=== PATIENT | female | born 1985 | race Caucasian/White ===

== ENCOUNTER 2021-02-12 14:57 | Emergency (ER) | payer BC, SELFPAY ==
--- NOTE | 2021-02-12 15:26 | PC.NURSE ---
Pt called to triage with no answer
--- NOTE | 2021-02-12 15:35 | PC.NURSE ---
CALLED FOR TRIAGE X2 NO ANSWER.
== END 2021-02-12 15:35 | disposition left against medical advice (07) ==
LOC: ANHED 15:41
DX: Z53.21 Procedure and treatment not carried out due to patient leaving prior to being seen by health care provider (principal)
CPT/HCPCS: 99199

== ENCOUNTER 2021-02-12 15:21 | Emergency (ER) | payer BC, SELFPAY ==
--- NOTE | ~2021-02-12 | XR_ITS ---
XR abdomen/kub 1V 02/12/2021 16:20 INDICATION: Right-sided abdominal pain. Diarrhea. TECHNIQUE: KUB COMPARISON: None FINDINGS: Bowel gas pattern is normal. There is a small bone island in the left pelvis. There is no e vidence of free air, mass, organomegaly, ascites or obstruction. No abnormal calculi are seen. The bones appear intact. IMPRESSION: 1: No acute abdominal abnormality identified. Reviewed, dictated and finalized at location A.
[2021-02-12 15:33] VITALS: BP 125/75; PULSE 106; RESP 16; TEMP 38.8; O2SAT 99
--- NOTE | 2021-02-12 15:49 | ED.GENADULT ---
HPI - General Adult General Chief complaint: Abdominal Pain Stated complaint: abd pain Time Seen by Provider: 02/12/21 15:50 Source: patient and RN notes reviewed Mode of arrival: ambulatory Limitations: no limitations History of Present Illness HPI narrative: 35-year-old female presents with complaints of right abdomen pain, fever, chills, nausea, and vomiting for the past 3 days. Natividad reports increasing symptoms over the past 24 hours with body aches and abdominal pain. ?Ibuprofen last today at 07:00 and Promethazine last on Wednesday02/10/2021 without relief. ?No significant pelvic pain. ?No vaginal discharge. ?No concerns for STDs. ?Fever (unknown at home, no thermometer) with chills. Nausea, vomiting, and diarrhea. ?Last episode on 02/11/2021 X2 in am and on 02/10/2021 had 3-4 episodes. ?No flank pain. Exacerbating factors consist of palpation. ?Denies dysuria, hematuria, and vaginal bleeding. ?No blood in stool or constipation. Last BM today, this morning was watery without blood. No cough or dyspnea. ?Denies chest pain, back pain, headache, and dizziness. ?Urine output within normal limits. ?Remains active. ?The patient reports she has not been diagnosed with COVID-19. ?The patient reports she is not waiting for the results of a COVID-19 lab test. ?Denies chest pain. ?The patient reports she does not have any rhinorrhea, congestion, sore throat, loss of taste or smell. ?Denies recent traveling. Denies concerns for COVID-19 or exposures. ?At this time, the patient is not suspected of having COVID-19. Some parts of this dictation were generated by voice recognition software and may contain typographical and/or grammatical inaccuracies. Related Data Home Medications Medication Instructions Recorded Confirmed Adult One Daily Multivitamin 1 tablet PO DAILY 02/12/21 02/12/21 Allergies Allergy/AdvReac Type Severity Reaction Status Date / Time latex Allergy Rash Verified 02/12/21 15:44 peanut Allergy Swelling Verified 02/12/21 15:44 tramadol Allergy Difficulty Verified 02/12/21 15:44 Breathing Review of Systems Review of Systems: Narrative: CONSTITUTIONAL: Complains of fever, chills, fatigue, body aches. Denies sweats. EYES: Denies visual changes, redness, discharge. ENT: Denies rhinorrhea, congestion, sore throat, otalgia. CARDIOVASCULAR: Denies chest pain, palpitations, edema. RESPIRATORY: Denies dyspnea, wheezing, cough. GASTROINTESTINAL: Complaints of diarrhea, abdominal pain, vomiting, nausea, and decreased appetite. GENITOURINARY: Denies dysuria, hematuria, abnormal discharge. SKIN: Denies rash or itching. MUSCULOSKELETAL: Denies acute back pain, joint pain, or myalgia. NEUROLOGIC: Denies numbness or focal weakness. PSYCHIATRIC: Denies anxiety or depression. All systems reviewed & are unremarkable except as noted in HPI and below. [facility] Past Medical History Medical History Anxiety Asthma Depression External hemorrhoid Paranoid schizophrenia Tobacco abuse Surgical History Surgical History History of tubal ligation Family History Family History Father , [place] at age 51 Acute myocardial infarction Diabetes mellitus Mother Drug overdose Sibling Asthma Social History Social History Social History: She lives with a friend in [place]. She has 3 children (ages 19,15 and 13) but they live with their father. She works at [employer]. She has smoked 1 pack of cigarettes per day for 18 years. She drinks alcohol on occasion but reports moderation. She frequently smokes marijuana. Smoking packs per day: 1 Smoking cigarettes per day: 20.0 Years smoked: 18 Smoking pack-years: 18.00 Smoking status: Current every day smoker Tobacco type: c
[2021-02-12 16:07] VITALS: TEMP 38.8
[2021-02-12] MEDS: ONDANSETRON HCL ODT 4 MG TABLET PO (16:07)
[2021-02-12] MEDS: ACETAMINOPHEN 500 MG TABLET 1000 MG PO (16:07)
[2021-02-12] MEDS: KETOROLAC (*BKC) 60 MG/2 ML VIAL IM (16:08)
[2021-02-12 16:39] VITALS: TEMP 38.6
--- NOTE | 2021-02-12 16:41 | PC.NURSE ---
1639- Pt called from room still not feeling well dry heaving, [employer] notified.
[2021-02-12 16:53] VITALS: BP 110/59; PULSE 96; RESP 18; TEMP 37.9; O2SAT 100
== END 2021-02-12 16:56 | disposition short-term general hospital (02) ==
PROVIDERS: Emergency Provider Nurse Practitioner Family
DX: R10.9 Unspecified abdominal pain (principal); F17.210 Nicotine dependence, cigarettes, uncomplicated; J45.909 Unspecified asthma, uncomplicated
CPT/HCPCS: 74018; 81003; 96372; 99203; A9270; G0463; J1885

== ENCOUNTER 2021-02-12 17:32 | Inpatient (IN) | payer BC, SELFPAY ==
--- NOTE | ~2021-02-12 | CT_ITS ---
EXAMINATION: CT abdomen pelvis w con DATE: 02/12/2021 19:01 INDICATION: Right lower quadrant pain. TECHNIQUE: Computed tomography (CT) of the abdomen and pelvis was performed with 100 cc Omnipaque 350 intravenous contrast. The dose-length product was 581.83 mGy-cm. Automated exposure control and iter ative reconstruction technique were employed. COMPARISON: None. FINDINGS: Lung bases are unremarkable. Heart size normal. No significant pleural or pericardial effus ion. There is heterogeneous enhancement of the right kidney with small amount of perinephric fluid. T he liver, spleen, pancreas, adrenal glands and left kidney are unremarkable. Nonobstructive bowel gas pattern. Normal appendix. No significant vascular abnormality. No lymphadenopathy. No free air or fr ee fluid. There is grade 2 spondylolisthesis at L5-S1 secondary to spondylolysis. There is severe deg enerative disc disease at this level. IMPRESSION: 1. Heterogeneous enhancement of the right kidney with perinephric fluid/stranding, suspicious for milton lonephritis. Clinically correlate. Reviewed, dictated and finalized at location A. IMPRESSION: 1. Heterogeneous enhancement of the right kidney with perinephric fluid/strandi ng, suspicious for pyelonephritis. Clinically correlate.
[2021-02-12 17:42] VITALS: BP 120/70; PULSE 113; RESP 17; TEMP 36.7; O2SAT 100
[2021-02-12 18:02] LABS: Basophils Absolute Auto 0.1 K/mm3 (0.0-0.1); Basophils Percent Auto 0.3 % (0.2-1.2); Eosinophils Absolute Auto 0.4 K/mm3 (0-0.3); Eosinophils Percent Auto 1.4 % (0-4.4); Hematocrit 37.8 % (37.0-47.0); Hemoglobin 12.7 g/dL (12.0-15.0); Immature Granulocyte Absolute 0.16 K/mm3 (0.00-0.031); Immature Granulocyte Percent A 0.6 % (0-0.5); Lymphocytes Absolute Auto 2.72 K/mm3 (0.9-3.2); Lymphocytes Percent Auto 10.6 % (18.3-44.2); Mean Corpuscular HGB Conc 33.6 g/dl (32-36); Mean Corpuscular Hemoglobin 29.5 pg (26-34); Mean Corpuscular Volume 87.9 fl (80-100); Mean Platelet Volume 9.3 fl (7.4-10.4); Monocytes Absolute Auto 2.1 K/mm3 (0.1-0.6); Neutrophils Absolute Auto 20.4 K/mm3 (1.3-6.7); Neutrophils Percent Auto 79.1 % (45.5-73.1); Platelet Count Result 355 k/mm3 (150-375); Red Cell Distribution Width 13.2 % (11.5-14.5); White Blood Count 25.7 K/mm3 (4.5-10.0)
[2021-02-12 18:18] LABS: Alanine Aminotransferase 30 U/L (4-35); Albumin Level 3.9 g/dL (3.5-5.1); Alkaline Phosphatase 71 U/L (38-126); Anion Gap 7 mmol/L (8-16); Aspartate Amino Transferase 40 U/L (14-36); Bilirubin,Total 0.4 mg/dL (0.2-1.3); Blood Urea Nitrogen 9 mg/dL (7-17); Calcium 8.3 mg/dL (8.4-10.2); Carbon Dioxide 25 mmol/L (22-30); Chloride 105 mmol/L (98-107); Estimated CRCL calculation 114 ml/min; Estimated Glomerular Filt Rate > 60; Glucose 108 mg/dL (65-105); Lipase 21 U/L (23-300); Potassium 3.7 mmol/L (3.4-5.0); Sodium 137 mmol/L (137-145)
[2021-02-12 19:18] VITALS: BP 117/83; PULSE 79; RESP 16; O2SAT 100
[2021-02-12 19:21] LABS: Add Urine Microscopic? YES; Appearance Urine Cloudy (Clear); Bacteria Urine Trace /hpf; Bilirubin Urine Negative (Negative); Blood Urine 2+ (Negative); Color Urine Amber (Yellow); Glucose Urine UA Negative (Negative); Ketones Urine Negative (Negative); Leukocyte Esterase Ur 2+ LEU/UL (Negative); Mucus Urine Heavy /lpf; Nitrate Urine Negative (Negative); Protein Urine 2+ mg/dL (Negative); Squamous Epithelial Cell Urine Many /hpf (Few); WBC Urine >75 /hpf
[2021-02-12 19:25] LABS: Specific Grav Ur 1.033 (1.001-1.035)
[2021-02-12] MEDS: KETOROLAC 15 MG/ML VIAL (*BKC) IV PUSH (19:35)
[2021-02-12] MEDS: ONDANSETRON INJ 4 MG/2 ML VIAL IV PUSH (19:35)
[2021-02-12] MEDS: SODIUM CHLORIDE 0.9% IV 1,000 ML 999 ML IV CONT (19:36)
[2021-02-12 19:59] LABS: Lactic Acid Reflex < 0.5 mmol/L (0.7-2.1)
--- NOTE | 2021-02-12 19:59 | ED.ABDPAIN ---
HPI - Abdominal Pain General Chief Complaint: Abdominal Pain Stated Complaint: RLQ pain Time Seen by Provider: 02/12/21 19:24 Source: patient and family Mode of arrival: ambulatory Limitations: no limitations History of Present Illness HPI narrative: Patient is a 35-year-old female with a history of anxiety, depression, schizophrenia, bipolar disorder who presents for evaluation of right-sided abdominal pain, right flank pain, fever, nausea and vomiting. Patient has been feeling unwell over the past several days. Initially she did have some hematuria and dysuria, states that has resolved. She reports urinary urgency. She reports dull, aching pain in the right abdomen and right flank. Patient has had a fever of 103 Fahrenheit and has had numerous episodes of nonbloody, nonbilious emesis. Patient presented from urgent care after she was referred to us where she was found to be febrile and tachycardic. Related Data Home Medications Medication Instructions Recorded Confirmed multivit with min-folic acid 1 tablet PO DAILY 02/12/21 02/12/21 [Adult One Daily Multivitamin] Allergies Allergy/AdvReac Type Severity Reaction Status Date / Time latex Allergy Rash Verified 02/12/21 15:44 peanut Allergy Swelling Verified 02/12/21 15:44 tramadol Allergy Difficulty Verified 02/12/21 15:44 Breathing Review of Systems Review of Systems: Narrative: CONSTITUTIONAL: Denies fever, chills, or sweats. EYES: Denies visual changes, redness, or discharge. ENT: Denies rhinorrhea, congestion, sore throat, or otalgia. CARDIOVASCULAR: Denies chest pain, palpitations, or edema. RESPIRATORY: Denies cough or dyspnea. GASTROINTESTINAL: Reports abdominal pain, nausea and vomiting GENITOURINARY: Denies dysuria, reports hematuria and frequency SKIN: Denies rash or itching. MUSCULOSKELETAL: Denies back pain, joint pain, or myalgia. NEUROLOGIC: Denies headache, numbness, or weakness. [facility] Past Medical History Medical History Anxiety Asthma Depression External hemorrhoid Paranoid schizophrenia Family History Family History Father , [place] at age 51 Acute myocardial infarction Mother , [place] No problems noted. Social History Social History Smoking packs per day: 1 Smoking cigarettes per day: 20.0 Years smoked: 10 Smoking pack-years: 10.00 Smoking status: Current every day smoker Tobacco type: cigarettes Second hand tobacco smoke exposure: Yes Alcohol intake: current Substance use: current Substance use type: marijuana Gender identity (if verbalized by the patient): Female Exam Narrative: Exam Narrative: GENERAL: Awake, alert, conversant HEAD: Normocephalic, atraumatic. EYES: PERRLA and EOMI. ENT: Nares clear, no rhinorrhea or epistaxis. Mucous membranes moist. NECK: Supple. CHEST: No respiratory distress, breathing even and non labored HEART: Tachycardic rate, sinus rhythm ABDOMEN:Non distended, mild right lower quadrant tenderness, mild right flank tenderness, no rebound, no guarding, nonrigid EXTREMITIES: Normal range of motion. No edema. SKIN: Warm, dry, no rash. NEURO:No focal deficits. Alert and oriented x3 Course Vital Signs Vital signs: Vital Signs Temperature 36.7 C 02/12/21 17:42 Pulse Rate 113 H 02/12/21 17:42 Respiratory Rate 17 02/12/21 17:42 Blood Pressure 120/70 02/12/21 17:42 Pulse Oximetry 100 02/12/21 17:42 Temperature 36.7 C 02/12/21 17:42 Pulse Rate 79 02/12/21 19:18 Respiratory Rate 16 02/12/21 19:18 Blood Pressure 117/83 02/12/21 19:18 Pulse Oximetry 100 02/12/21 19:18 MDM - Abdominal Pain MDM Narrative Medical decision making narrative: Patient is a 35-year-old who presented for evaluation of fever, abdominal pain, nausea and vomiting. At the time of as
[2021-02-12] MEDS: LORazepam INJ (*CRX) 2 MG/ML VIAL 0.5 MG IV PUSH (20:00)
[2021-02-12] MEDS: MORPHINE SULFATE (*CRX) 4 MG/ML INJ IV PUSH (21:09)
--- NOTE | 2021-02-12 21:56 | ADMGEN ---
This patient, Natividad Siddiqi, was admitted to 3 [facility] Surg Room 314-01. Patient/family oriented to hospital policies and general routines including ID bracelet, bed and alarms, visiting hours, pain management, procedures, bathroom and other care routines, personal items, smoking policy, room service/diet, and visiting hours. Information on how to activate the Rapid Response Team has been discussed. Patient/Family are encouraged to report perceived risks to care and to ask questions if they do not understand what they are told or what they should do.
[2021-02-12 22:00] VITALS: BP 107/54; PULSE 102; RESP 20; TEMP 37.1; O2SAT 100; BMI 29.5
[2021-02-12] MEDS: LACTATED RINGERS 1,000 ML 125 ML IV CONT (22:53)
[2021-02-12 23:48] VITALS: BP 107/51; PULSE 105; RESP 20; TEMP 36.7; O2SAT 99
--- NOTE | 2021-02-13 01:18 | PM.IMHP ---
H&P: HPI History of Present Illness Date/Time: 02/13/21 02:20 Chief Complaint: right lower abdominal pain Narrative: 35-year-old female past medical history of anxiety, depression, paranoid schizophrenia and bipolar disorder who presented to the ER from urgent care with right lower abdominal pain. patient reports that she has had about 3 days of abdominal pain. All pain was mostly in the right lower quadrant but would radiate down to the left adnexa. It also radiated to the right flank. It was accompanied by intermittent nausea and vomiting. She reported a fever as high as 103.4 at home. She reported increased urinary frequency. She denied any dysuria. In the ER she had reported some initial hematuria but at the time my evaluation denied ever having had any hematuria. She denies any foul-smelling urine or loss of bladder control. She reports that her abdominal pain is dull and aching. She reports that her abdominal pain is worse with palpation. Her fevers unrelieved despite NSAIDs . She initially reported numerous episodes of nausea vomiting with dry heaves. She has not had any further vomiting since admission to the hospital. She reports that she has had several months of intermittent loose stools up to 3-4 loose stools a day. Her stools are usually brown and watery. She denies any recent travel or antibiotic use. She works at a local fast food restaurant. She denies any known COVID exposures. She denies any cough or congestion. Patient sounds as if she has some nasal congestion and had quite loud snoring when I entered the room. The patient was sleeping soundly and was in no distress. Once the patient awoke she was rolling around in bed and moaning. She appears quite anxious. She had a CT of the abdomen pelvis in the ER which demonstrated right-sided pyelonephritis. She denies any prior history of frequent urinary tract infections or pyelonephritis.. Review of Systems Review of Systems: Narrative: 12 systems were reviewed with pertinent positives and negatives per HPI. Except as documented in the HPI, all other systems were reviewed and are negative. [facility] Past Medical History Medical History (Updated 02/13/21 @ 05:15 by Misty Patel DO) Anxiety Asthma Depression External hemorrhoid Paranoid schizophrenia Surgical History Surgical History (Updated 02/13/21 @ 05:08 by Misty Patel DO) History of tubal ligation Family History Family History (Updated 02/13/21 @ 05:08 by Misty Patel DO) Father , [place] at age 51 Acute myocardial infarction Diabetes mellitus Mother Drug overdose Sibling Asthma Social History Social History (Updated 02/13/21 @ 05:11 by Misty Patel DO) Social History: She lives with a friend in [place]. She has 3 children (ages 19,15 and 13) but they live with their father. She works at [employer]. She has smoked 1 pack of cigarettes per day for 18 years. She drinks alcohol on occasion but reports moderation. She frequently smokes marijuana. Smoking packs per day: 1 Smoking cigarettes per day: 20.0 Years smoked: 18 Smoking pack-years: 18.00 Smoking status: Current every day smoker Tobacco type: cigarettes Second hand tobacco smoke exposure: Yes Alcohol intake: current Drinks per week: 1 Substance use: current Substance use type: marijuana Last use: 02/11/21 Additional occupation/education comments: [employer] employee Gender identity (if verbalized by the patient): Female Spiritual care concerns: No Meds Home Medications and Allergies Home Medications Medication Instructions Recorded Confirmed Type multivit with min-folic acid 1 tablet PO DAILY 02/12/21 02/12/21 History [Adult One Daily Multivitamin] Allergies Allergy/AdvReac Type Severity Reaction Status Date / Time latex Allergy Rash Verified 02/12/21 15:44 peanut Allergy Swelling Verified 02/12/21 15:44 tramadol Allergy
[2021-02-13 03:43] VITALS: BP 130/63; PULSE 108; RESP 20; TEMP 37.6; O2SAT 99
[2021-02-13] MEDS: HYDROcodone/acetaminophen (*CRX) 5-325 MG TABLET 1 TAB PO ×3 (03:50→19:50)
[2021-02-13 06:22] LABS: Basophils Absolute Auto 0.1 K/mm3 (0.0-0.1); Basophils Percent Auto 0.3 % (0.2-1.2); Eosinophils Absolute Auto 0.3 K/mm3 (0-0.3); Eosinophils Percent Auto 1.3 % (0-4.4); Hematocrit 35.5 % (37.0-47.0); Hemoglobin 11.7 g/dL (12.0-15.0); Immature Granulocyte Absolute 0.18 K/mm3 (0.00-0.031); Immature Granulocyte Percent A 0.8 % (0-0.5); Lymphocytes Absolute Auto 2.07 K/mm3 (0.9-3.2); Mean Corpuscular Volume 87.9 fl (80-100); Mean Platelet Volume 9.4 fl (7.4-10.4); Monocytes Absolute Auto 1.9 K/mm3 (0.1-0.6); Monocytes Percent Auto 8.2 % (2.6-8.5); Neutrophils Absolute Auto 18.5 K/mm3 (1.3-6.7); Neutrophils Percent Auto 80.4 % (45.5-73.1); Platelet Count Result 309 k/mm3 (150-375); Red Blood Count 4.04 M/mm3 (4.2-5.4)
[2021-02-13 06:31] LABS: Anion Gap 6 mmol/L (8-16); Blood Urea Nitrogen 7 mg/dL (7-17); Calcium 7.7 mg/dL (8.4-10.2); Carbon Dioxide 24 mmol/L (22-30); Chloride 106 mmol/L (98-107); Estimated CRCL calculation 117 ml/min; Estimated Glomerular Filt Rate > 60; Glucose 111 mg/dL (65-105); Potassium 3.2 mmol/L (3.4-5.0); Sodium 136 mmol/L (137-145)
[2021-02-13 08:00] VITALS: BP 113/77; PULSE 91; RESP 18; TEMP 36.8; O2SAT 100
[2021-02-13] MEDS: ENOXAPARIN 40 MG/0.4 ML SYRINGE SUB-Q (08:21)
[2021-02-13] MEDS: THERAPEUTIC MULTIVITAMINS/MINERALS TAB (*BKC) 1 TABLET PO (08:21)
[2021-02-13] MEDS: POTASSIUM CHLORIDE 20 MEQ TABLET 40 MEQ PO (08:21)
[2021-02-13 08:47] LABS: Amphetamine Screen Urine Negative (Negative); Barbiturate Screen Urine Negative (Negative); Benzodiazepines Screen Urine Negative (Negative); Cannabinoid Screen Urine Positive (Negative); Cocaine Screen Urine Negative (Negative); Methadone Screen Urine Negative (Negative); Opiate Screen Urine Positive (Negative); Phencyclidine Screen Urine Negative (Negative)
[2021-02-13] MEDS: LACTATED RINGERS 1,000 ML 125 ML IV CONT (09:17)
[2021-02-13 12:00] VITALS: BP 114/78; PULSE 96; RESP 20; TEMP 36.5; O2SAT 100
[2021-02-13] MEDS: LORazepam (*CRX) 0.5 MG TABLET PO ×2 (13:05→19:51)
[2021-02-13] MEDS: NICOTINE (*PBKC) 21 MG PATCH 1 PATCH TRANSDERM (13:05)
--- NOTE | 2021-02-13 13:32 | PM.IMPN ---
Progress Note: A&P Assessment and Plan (1) Pyelonephritis: Code(s): N12 - Tubulo-interstitial nephritis, not specified as acute or chronic Status: Acute Assessment and Plan: CT abdomen/ pelvis with heterogenous enhancement of the right kidney with perinephric stranding. UA grossly abnormal. continue empiric antibiotic therapy with Rocephin await results of urine culture and tailor antibiotics accordingly analgesics available as needed (2) Sepsis: Qualifiers: Sepsis acute organ dysfunction status: unspecified Sepsis type: sepsis due to unspecified organism Qualified Code(s): A41.9 - Sepsis, unspecified organism Code(s): A41.9 - Sepsis, unspecified organism Status: Acute Assessment and Plan: evident on admission with tachycardia, leukocytosis, and fever with T-max 101.9?. source of infection is pyelonephritis. No lactic acidosis. she has remained afebrile today with improvement in tachycardia and leukocytosis. Blood cultures pending monitor vital signs, urine output, CBC, and electrolytes (3) Dehydration determined by examination: Code(s): E86.0 - Dehydration Status: Acute Assessment and Plan: clinically volume depleted. Secondary to acute infection, fever, and nausea/vomiting. Seems to be improving. Decrease IV fluids to 80 ml/hr discontinue when tolerating p.o. intake without nausea or vomiting. (4) Anxiety: Code(s): F41.9 - Anxiety disorder, unspecified Status: Inactive Assessment and Plan: Acutely anxious. She has had worsened issues with anxiety since she has come off of her antipsychotic medications. Likely exacerbated by nicotine withdrawal. Ativan 0.5 mg po q6h she will need to follow-up with her primary care provider and would benefit from starting a long-acting anxiolytic. would also benefit from reestablishing with psychiatry and resuming antipsychotic medications (5) Person under investigation for COVID-19: Code(s): Z20.822 - Contact with and (suspected) exposure to COVID-19 Status: Acute Assessment and Plan: she was tested for COVID-19 on 02/12. aside from fever, no significant symptoms. Has not been vaccinated. Isolation precautions in place she is maintaining adequate oxygen saturations on room air. Will not initiate COVID specific treatment including steroids or antivirals at this time while awaiting results. (6) Tobacco abuse: Code(s): Z72.0 - Tobacco use Status: Acute Assessment and Plan: She smokes 1 pack per day. She endorses cigarette craving. Apply nicotine patch smoking cessation discussed. Will continue to enforce this throughout her hospitalization and have a more in-depth conversation when she is less anxious Additional Plan potassium low at 3.2 and has been supplemented. Monitor BMP daily. Subjective Date/time seen: 02/13/21 13:32 Interval history: date of service: 02/13/2021 Natividad Siddiqi is a 35-year-old female with a history of anxiety, depression, paranoid schizophrenia, bipolar disorder, methamphetamine and alcohol abuse however has been sober for >6 months who is seen in follow-up for acute pyelonephritis. She is acutely anxious today. Being in the hospital has worsened her overall anxiety. She has been feeling nauseous and had a single episode of emesis this morning. She was able to tolerate her breakfast and lunch following this episode and her nausea is improving. She complains of right flank pain which she rates as 6/10. Pain worsens with movement or when coughing. She denies any significant urinary symptoms including dysuria, hematuria, urgency, frequency, or dark urine but does note foul odor. Denies abdominal pain or suprapubic pain. No dizziness or lightheadedness. No fevers or chills. She has had a headache that has persisted throughout the day. She has intermittent dry cough. She e
[2021-02-13] MEDS: ACETAMINOPHEN 325 MG TABLET 650 MG PO (14:04)
[2021-02-13 15:39] LABS: SARS-CoV-2 RNA PCR Negative
[2021-02-13 15:49] VITALS: BP 127/72; PULSE 93; RESP 18; TEMP 36.4; O2SAT 100
[2021-02-13] MEDS: ONDANSETRON INJ 4 MG/2 ML VIAL IV PUSH ×2 (17:31→21:49)
[2021-02-13 22:00] VITALS: BP 133/75; PULSE 89; RESP 18; TEMP 36.2; O2SAT 99
[2021-02-14] MEDS: LACTATED RINGERS 1,000 ML 80 ML IV CONT ×2 (00:41→13:44)
[2021-02-14] MEDS: ACETAMINOPHEN 325 MG TABLET 650 MG PO ×3 (03:00→19:55)
[2021-02-14] MEDS: LORazepam (*CRX) 0.5 MG TABLET PO ×3 (03:01→18:52)
[2021-02-14 06:00] VITALS: BP 126/91; PULSE 95; RESP 18; TEMP 35.8; O2SAT 100
[2021-02-14 06:31] LABS: Hematocrit 35.6 % (37.0-47.0); Hemoglobin 11.4 g/dL (12.0-15.0); Mean Corpuscular Hemoglobin 28.6 pg (26-34); Mean Corpuscular Volume 89.2 fl (80-100); Mean Platelet Volume 9.5 fl (7.4-10.4); Platelet Count Result 294 k/mm3 (150-375); Red Blood Count 3.99 M/mm3 (4.2-5.4); Red Cell Distribution Width 12.6 % (11.5-14.5); White Blood Count 15.9 K/mm3 (4.5-10.0)
[2021-02-14] MEDS: HYDROcodone/acetaminophen (*CRX) 5-325 MG TABLET 1 TAB PO ×2 (06:32→19:54)
[2021-02-14 06:34] LABS: Anion Gap 7 mmol/L (8-16); Blood Urea Nitrogen 5 mg/dL (7-17); Calcium 8.4 mg/dL (8.4-10.2); Carbon Dioxide 26 mmol/L (22-30); Chloride 105 mmol/L (98-107); Estimated CRCL calculation 117 ml/min; Estimated Glomerular Filt Rate > 60; Glucose 113 mg/dL (65-105); Potassium 3.5 mmol/L (3.4-5.0); Sodium 138 mmol/L (137-145)
--- NOTE | 2021-02-14 06:37 | PC.NURSE ---
Patient states that only her significant other, Pancho Carcamo, is allowed to visit her and get information from staff during this stay. Pancho's phone number is [phone]. Emergency contact changed in computer by this RN. Also call made to front end application developer to request Pancho to be only one to visit. Will report to oncoming shift
[2021-02-14] MEDS: THERAPEUTIC MULTIVITAMINS/MINERALS TAB (*BKC) 1 TABLET PO (08:37)
[2021-02-14] MEDS: ENOXAPARIN 40 MG/0.4 ML SYRINGE SUB-Q (08:37)
[2021-02-14 09:36] VITALS: O2SAT 100
[2021-02-14 14:00] VITALS: BP 123/79; PULSE 87; RESP 22; TEMP 36.8; O2SAT 100
[2021-02-14] MEDS: NICOTINE (*PBKC) 21 MG PATCH 1 PATCH TRANSDERM (14:36)
--- NOTE | 2021-02-14 14:43 | PM.IMPN ---
Progress Note: A&P Assessment and Plan (1) Pyelonephritis: Code(s): N12 - Tubulo-interstitial nephritis, not specified as acute or chronic Status: Acute Assessment and Plan: CT abdomen/ pelvis with heterogenous enhancement of the right kidney with perinephric stranding. UA with >100k E. coli. continue empiric antibiotic therapy with Rocephin await susceptibility report and tailor antibiotics accordingly analgesics available as needed. Scheduled tylenol with norco for breakthrough pain. Narcotics should be limited. (2) Sepsis: Qualifiers: Sepsis acute organ dysfunction status: unspecified Sepsis type: sepsis due to unspecified organism Qualified Code(s): A41.9 - Sepsis, unspecified organism Code(s): A41.9 - Sepsis, unspecified organism Status: Acute Assessment and Plan: evident on admission with tachycardia, leukocytosis, and fever with T-max 101.9?. Source of infection is pyelonephritis. No lactic acidosis. she has remained afebrile today with resolution of tachycardia and improvement in leukocytosis. Blood cultures pending monitor vital signs, urine output, CBC, and electrolytes (3) Dehydration determined by examination: Code(s): E86.0 - Dehydration Status: Acute Assessment and Plan: Clinically volume depleted at presentation. Secondary to acute infection, fever, and nausea/vomiting. She appears euvolemic at this time. Discontinue IV fluids as she has been adequately rehydrated and tolerating PO intake. (4) Anxiety: Code(s): F41.9 - Anxiety disorder, unspecified Status: Inactive Assessment and Plan: Acutely anxious. She has had worsened issues with anxiety since she has come off of her antipsychotic medications. Likely exacerbated by nicotine withdrawal. Ativan 0.5 mg po q6h she will need to follow-up with her primary care provider and would benefit from starting a long-acting anxiolytic. would also benefit from reestablishing with psychiatry and resuming antipsychotic medications (5) Tobacco abuse: Code(s): Z72.0 - Tobacco use Status: Acute Assessment and Plan: She smokes 1 pack per day. Continue with nicotine patch smoking cessation discussed. Will continue to enforce this throughout her hospitalization Subjective Date/time seen: 02/14/21 14:43 Interval history: date of service: 02/14/2021 Natividad Siddiqi is a 35-year-old female with a history of anxiety, depression, paranoid schizophrenia, bipolar disorder, methamphetamine and alcohol abuse however has been sober for >6 months who is seen in follow-up for acute pyelonephritis. She is feeling a bit better today but is still complaining of persistent pain that she rates as 6/10. pain is worse with movement. Her pain is now only in the right flank and she no longer has back pain. She has not had any nausea or vomiting today. She has been tolerating her diet. She had chills this morning but has not had any fevers. She is still feeling very anxious. she is ambulating independently and denies dizziness or lightheadedness. She denies dysuria, hematuria, urgency, frequency. No abdominal pain or suprapubic pain. No shortness breath, cough, or chest pain. she is eager to go home, but wants to stay to get her pain better controlled and to ensure her infection is adequately treated. Additionally, she complains of itching on her face and notes some small bumps on her right jaw/cheek. She had poison fabio a couple weeks ago and her skin has been irritated since. Review of Systems Review of Systems: All systems reviewed & are unremarkable except as noted in HPI and below Exam Narrative: Exam Narrative: Ms. Siddiqi is a well-nourished, well-appearing 35-year-old female who is lying supine in bed. she appears comfortable and is in NARD. Neuro: awake, alert and oriented x4, speech clear, no focal neuro deficits not
[2021-02-14] MEDS: ONDANSETRON INJ 4 MG/2 ML VIAL IV PUSH (16:31)
[2021-02-14] MEDS: DIPHENHYDRAMINE 1%/ZINC 0.1% CREAM 30 GM TUBE 1 APPLIC TOPICAL (16:31)
[2021-02-14] MEDS: polyethylene glycoL 3350 17 GM POWD.PACK PO (19:07)
[2021-02-14 22:00] VITALS: BP 112/72; PULSE 80; RESP 20; TEMP 36.3; O2SAT 100
[2021-02-15] MEDS: HYDROcodone/acetaminophen (*CRX) 5-325 MG TABLET 1 TAB PO (03:28)
[2021-02-15] MEDS: ACETAMINOPHEN 325 MG TABLET 650 MG PO ×2 (03:28→08:24)
[2021-02-15] MEDS: SENNA/DOCUSATE SODIUM TABLET 1 TAB PO (03:29)
[2021-02-15 06:00] VITALS: BP 126/72; PULSE 83; RESP 20; TEMP 36.2; O2SAT 100
[2021-02-15 06:23] LABS: Hematocrit 37.6 % (37.0-47.0); Hemoglobin 11.8 g/dL (12.0-15.0); Mean Corpuscular HGB Conc 31.4 g/dl (32-36); Mean Corpuscular Hemoglobin 28.4 pg (26-34); Mean Corpuscular Volume 90.4 fl (80-100); Mean Platelet Volume 9.5 fl (7.4-10.4); Platelet Count Result 330 k/mm3 (150-375); Red Blood Count 4.16 M/mm3 (4.2-5.4); Red Cell Distribution Width 12.6 % (11.5-14.5); White Blood Count 11.7 K/mm3 (4.5-10.0)
[2021-02-15 06:39] LABS: Anion Gap 6 mmol/L (8-16); Blood Urea Nitrogen 5 mg/dL (7-17); Calcium 8.1 mg/dL (8.4-10.2); Carbon Dioxide 26 mmol/L (22-30); Chloride 106 mmol/L (98-107); Estimated CRCL calculation 137 ml/min; Estimated Glomerular Filt Rate > 60; Glucose 101 mg/dL (65-105); Potassium 3.7 mmol/L (3.4-5.0); Sodium 138 mmol/L (137-145)
[2021-02-15] MEDS: THERAPEUTIC MULTIVITAMINS/MINERALS TAB (*BKC) 1 TABLET PO (08:24)
[2021-02-15] MEDS: polyethylene glycoL 3350 17 GM POWD.PACK PO (08:24)
[2021-02-15] MEDS: ENOXAPARIN 40 MG/0.4 ML SYRINGE SUB-Q (08:25)
[2021-02-15] MEDS: LORazepam (*CRX) 0.5 MG TABLET PO (10:43)
--- NOTE | 2021-02-15 11:12 | PM.DS ---
DS: Admitting Diagnosis Admitting Diagnosis Admitting Diagnosis: Pyelonephritis DS: Discharge Diagnosis Discharge Diagnosis (1) Pyelonephritis: Code(s): N12 - Tubulo-interstitial nephritis, not specified as acute or chronic Status: Acute Assessment and Plan: Presented with right flank pain CT abdomen/ pelvis with heterogenous enhancement of the right kidney with perinephric stranding. started on empiric IV Rocephin UA with >100k E. coli susceptible to Rocephin she was discharged home with p.o. Cipro based on susceptibilities Tylenol as needed for pain (2) Sepsis: Qualifiers: Sepsis acute organ dysfunction status: unspecified Sepsis type: sepsis due to unspecified organism Qualified Code(s): A41.9 - Sepsis, unspecified organism Code(s): A41.9 - Sepsis, unspecified organism Status: Acute Assessment and Plan: Evident on admission with tachycardia, leukocytosis, and fever with T-max 101.9?. Source of infection is pyelonephritis. No lactic acidosis. she was treated with IV antibiotics and rehydrated with IV fluids. Fever and tachycardia resolved. Leukocytosis with significant improvement. Preliminary blood cultures negative to date and final cultures will be monitored. (3) Dehydration determined by examination: Code(s): E86.0 - Dehydration Status: Acute Assessment and Plan: Clinically volume depleted at presentation. Secondary to acute infection, fever, and nausea/vomiting. She was rehydrated with IV fluids and was tolerating p.o. intake (4) Anxiety: Code(s): F41.9 - Anxiety disorder, unspecified Status: Inactive Assessment and Plan: Acutely anxious. She has had worsened issues with anxiety since she has come off of her antipsychotic medications. Likely exacerbated by nicotine withdrawal during hospitalization. She will need to follow-up with her primary care provider and would benefit from starting a long-acting anxiolytic. Would also benefit from reestablishing with psychiatry and resuming antipsychotic medications (5) Tobacco abuse: Code(s): Z72.0 - Tobacco use Status: Acute Assessment and Plan: She smokes 1 pack per day. nicotine patch provided during hospital stay. Smoking cessation discussed for 4 minutes. She verbalized understanding. DS: Summary Hospital Course Hospital Course: Date of admission: 02/12/2021 date of discharge: 02/15/2021 nino Siddiqi is a 35-year-old female with a history of anxiety, depression, paranoid schizophrenia, bipolar disorder, methamphetamine and alcohol abuse however has been sober for >6 months who presented to the emergency department on 02/12/2021 with complaints of right abdominal pain, fever, chills, nausea, and vomiting ongoing for 3 days. she was sent from urgent care. Upon presentation to the emergency department, she was tachycardiac with additional vital signs stable, she was afebrile, WBC 25.7, additional CBC and BMP unremarkable, urinalysis grossly abnormal, lactic 0.5, CT abdomen / pelvis with concerns for pyelonephritis. She was admitted to the hospitalist service for further evaluation and management. Please see above for further details. She was treated with IV antibiotics and will continue oral antibiotics to complete a full course. She was feeling much better and was very eager for discharge home. Her fever resolved and her pain improved significantly. Given her overall improvement, she was determined to no longer require inpatient care and was felt to be stable for discharge. We discussed worrisome signs and symptoms for which to return and she was educated on her medications. She was discharged in hemodynamically stable condition on 02/15/2021. She will need to establish care with a primary care physician. She was provided information for the station mechanic helper primary care physician and will need to follow-up in 1-2 weeks for monitoring.
== END 2021-02-15 11:30 | disposition home or self-care (01) | DRG 720 ==
LOC: ANHED 20:24 → ANH3MEDSUR 21:17
PROVIDERS: Physician Assistant; Admitting Provider Internal Medicine; Emergency Provider Emergency Medicine; Visit Provider Family Medicine
DX: A41.9 Sepsis, unspecified organism (principal); N10 Acute pyelonephritis; E86.0 Dehydration; B96.20 Unspecified Escherichia coli [E. coli] as the cause of diseases classified elsewhere; Z20.822 Contact with and (suspected) exposure to COVID-19; F41.9 Anxiety disorder, unspecified; F17.213 Nicotine dependence, cigarettes, with withdrawal; F20.0 Paranoid schizophrenia; F31.9 Bipolar disorder, unspecified; J45.909 Unspecified asthma, uncomplicated
CPT/HCPCS: 36415; 74177; 80048; 80053; 80307; 81001; 81025; 83605; 83690; 85025; 85027; 87040; 87077; 87086; 87088; 87186; 96361; 96365; 96372; 96375; 99285; A9270; C9803; G0378; J0696; J1650; J1885; J2060; J2270; J2405; J7030; J7120; Q9967; U0003; U0005